=== PATIENT | female | born 2000 | race Caucasian/White ===

== ENCOUNTER 2022-02-07 17:33 | Inpatient (IN) | payer MEDICAID ==
[~2022-02-07] VITALS: Ht 162 cm; Wt 98.3 kg
[2022-02-07] MEDS ORDERED: LACTATED RINGERS 1,000 ML IV ONE (18:15)
[2022-02-07 18:36] LABS: BASOPHILS # (AUTO) 0.1 10^3/uL (0.0-0.1); BASOPHILS % (AUTO) 1 % (0-10); EOSINOPHILS % (AUTO) 0 % (0-10); HEMATOCRIT 45 % (35-52); HEMOGLOBIN 14.9 g/dL (11.5-16.0); LYMPHOCYTES # (AUTO) 1.9 10^3/uL (1.0-4.0); LYMPHOCYTES % (AUTO) 12 % (12-44); MEAN CORPUSCULAR HEMOGLOBIN 30 pg (25-34); MEAN CORPUSCULAR HGB CONC 33 g/dL (32-36); MEAN CORPUSCULAR VOLUME 91 fL (80-99); MEAN PLATELET VOLUME 9.2 fL (9.0-12.2); MONOCYTES # (AUTO) 0.9 10^3/uL (0.0-1.0); MONOCYTES % (AUTO) 6 % (0-12); NEUTROPHILS # (AUTO) 13.5 10^3/uL (1.8-7.8); NEUTROPHILS % (AUTO) 82 % (42-75); PLATELET COUNT 515 10^3/uL (130-400); WHITE BLOOD COUNT 16.5 10^3/uL (4.3-11.0)
[2022-02-07] MEDS ORDERED: ONDANSETRON 4 MG/2 ML (SDV) Z0FRAN IVP ONE (18:45)
[2022-02-07 18:56] LABS: ALBUMIN 4.8 GM/DL (3.2-4.5); CHLORIDE 103 MMOL/L (98-107)
[2022-02-07 18:57] LABS: POTASSIUM 3.4 MMOL/L (3.6-5.0); SODIUM 140 MMOL/L (135-145)
[2022-02-07 18:58] LABS: AMYLASE 58 U/L (25-125); CALCIUM 10.1 MG/DL (8.5-10.1)
[2022-02-07 18:59] LABS: GLUCOSE 123 MG/DL (70-105); TOTAL PROTEIN 8.8 GM/DL (6.4-8.2)
[2022-02-07 19:00] LABS: CARBON DIOXIDE 23 MMOL/L (21-32)
[2022-02-07 19:01] LABS: BILIRUBIN,TOTAL 0.7 MG/DL (0.1-1.0)
[2022-02-07 19:02] LABS: ALKALINE PHOSPHATASE 69 U/L (40-136); CREATININE SERUM 0.95 MG/DL (0.60-1.30); GFR ESTIMATED 89
[2022-02-07 19:03] LABS: BAND NEUTROPHILS 1 %; BUN/CREATININE RATIO 12; LYMPHOCYTES % (MANUAL) 17 %; MONOCYTES % (MANUAL) 9 %; NEUTROPHILS % (MANUAL) 73 %; RBC MORPH NORMAL
[2022-02-07 19:05] LABS: BILIRUBIN,URINE NEGATIVE (NEGATIVE); CLARITY,URINE CLEAR; COLOR,URINE ORANGE; GLUCOSE, URINE (UA) NEGATIVE (NEGATIVE); KETONES,URINE NEGATIVE (NEGATIVE); LEUKOCYTE ESTERASE ,URINE TRACE (NEGATIVE); NITRITE,URINE NEGATIVE (NEGATIVE); PH,URINE 5.5 (5-9); PROTEIN,URINE TRACE (NEGATIVE)
[2022-02-07 19:05] LABS: ALANINE AMINOTRANSFERASE 15 U/L (0-55)
[2022-02-07 19:06] LABS: MAGNESIUM 2.1 MG/DL (1.6-2.4)
[2022-02-07 19:07] LABS: LIPASE 13 U/L (8-78)
[2022-02-07 19:15] LABS: BACTERIA,URINE FEW /HPF; WBC,URINE 0-2 /HPF
[2022-02-07] MEDS ORDERED: HOLD METFORMIN - RECEIVED CONTRAST 20 ML VIAL IV SCH (19:15)
[2022-02-07] MEDS ORDERED: IOHEXOL 350 MG/ML 100 ML (OMNIPAQUE 350) VIAL IV ONE (19:15)
[2022-02-07] MEDS ORDERED: NS 100 ML (IVPB) BAG IV ONE (19:15)
[2022-02-07 19:20] LABS: AMPHETAMINE SCREEN, URINE NEGATIVE (NEGATIVE); BARBITURATE SCREEN URINE NEGATIVE (NEGATIVE); BENZODIAZEPINES SCREEN URINE NEGATIVE (NEGATIVE); CANNABINOID SCREEN, URINE POSITIVE (NEGATIVE); COCAINE SCREEN URINE NEGATIVE (NEGATIVE); METHADONE STAT NEGATIVE (NEGATIVE); OPIATE SCREEN URINE NEGATIVE (NEGATIVE); OXYCODONE STAT NEGATIVE (NEGATIVE); PROPOXYPHENE STAT NEGATIVE (NEGATIVE); TRICYCLIC ANTIDEPRESSANTS SCRE NEGATIVE (NEGATIVE)
[2022-02-07] MEDS ORDERED: PROMETHAZINE INJ 25 MG/ML (PHENERGAN) AMP IVP ONE (19:30)
--- NOTE | 2022-02-07 19:31 | ED GI ---
General Chief Complaint: Abdominal/GI Problems Stated Complaint: PAINS IN R SIDE, NAUSEATED, SOB, CHILLS Nursing Triage Note: RIGHT SIDED ABD PAIN AND NAUSEA STARTING AT 0800 Source of Information: Patient History of Present Illness Date Seen by Provider: Feb 07, 2022 Time Seen by Provider: 18:07 Initial Comments PT ARRIVES VIA POV FROM HOME STATES SHE WOKE UP AROUND 0800 THIS MORNING WITH RLQ ABDOMINAL PAIN WITH NAUSEA NO VOMITING HAD NORMAL BM YESTERDAY HAS HAD DECREASED URINE OUTPUT TODAY, BUT NO PAIN/BURNING ON URINATION HAS HAD SUBJECTIVE FEVER/SWEATS/CHILLS TODAY--DOES NOT HAVE A THERMOMETER PAIN IS WORSE WITH WALKING, COUGHING, MOVING, DEEP BREATHING HAS NOT TAKEN ANYTHING FOR PAIN, AND NOTHING IMPROVES PAIN NO RADIATION OF PAIN LAST INTAKE WAS SOMETIME THIS AFTERNOON--ATE SOME CEREAL. NOTHING ELSE TO EAT TODAY. LMP 1 WEEK AGO, HAS NEXPLANON IN PLACE. NO PRIOR ABDOMINAL SURGERIES OR GI PROBLEMS NO CHRONIC MEDICAL PROBLEMS PT IS NOT COVID VACCINATED PCP IN [place], [place] Allergies and Home Medications Allergies Coded Allergies: No Known Drug Allergies (Unverified , 02/07/22) Patient Home Medication List Home Medication List Reviewed: Yes Review of Systems Review of Systems Constitutional: see HPI, chills, diaphoresis, fever EENTM: No Symptoms Reported Respiratory: No Symptoms Reported Cardiovascular: No Symptoms Reported Gastrointestinal: See HPI; Denies Diarrhea; Nausea; Denies Vomiting Genitourinary: See HPI Musculoskeletal: no symptoms reported Skin: no symptoms reported, change in hair/nails Psychiatric/Neurological: No Symptoms Reported Endocrine: No Symptoms Reported Hematologic/Lymphatic: No Symptoms Reported Past Bcinqzg-Hjmofi-Omatxx Hx Patient Social History Tobacco Use?: No Smoking Status: Never a Smoker Substance use?: Yes Substance type: Marijuana Substance frequency: Daily Alcohol Use?: No Past Medical History Surgeries: No Respiratory: No Cardiac: No Neurological: No : No Reproductive Disorders: No Genitourinary: No Gastrointestinal: No Musculoskeletal: No Endocrine: No HEENT: No Cancer: No Psychosocial: No Integumentary: No Blood Disorders: No Physical Exam Vital Signs Vital Signs - First Documented 02/07/22 17:40 Temp 37.0 Pulse 113 Resp 16 B/P (MAP) 155/92 (113) Pulse Ox 98 O2 Delivery Room Air Capillary Refill : Less Than 3 Seconds Height/Weight/BMI Height: '" Weight: lbs. oz. kg; 36.00 BMI Method: General Appearance: WD/WN, other (LOOKS UNCOMFORTABLE) HEENT: PERRL/EOMI Respiratory: normal breath sounds, no respiratory distress, no accessory muscle use Cardiovascular: regular rate, rhythm, no murmur Gastrointestinal: soft, no organomegaly, no pulsatile mass, abnormal bowel sounds (DECREASED); No distended, No guarding; rebound, tenderness (RIGHT MID ); No hernia, No mass; other (+ HEEL TAP, + STRAIGHT LEG RAISING. NEGATIVE ROVSING'S. + PSOAS AND + OBTURATOR. ) Extremities: normal inspection, normal capillary refill Back: no CVA tenderness Neurologic/Psychiatric: equipment tester II-XII nml as tested, no motor/sensory deficits, alert, oriented x 3 Skin: normal color, warm/dry; No rash Progress/Results/Core Measures Results/Orders Lab Results Laboratory Tests Test 02/07/22 18:15 02/07/22 18:45 02/07/22 18:55 Range/Units White Blood Count 16.5 H 4.3-11.0 10^3/uL Red Blood Count 4.92 3.80-5.11 10^6/uL Hemoglobin 14.9 11.5-16.0 g/dL Hematocrit 45 35-52 % Mean Corpuscular Volume 91 80-99 fL Mean Corpuscular Hemoglobin 30 25-34 pg Mean Corpuscular Hemoglobin Concent 33 32-36 g/dL Red Cell Distribution Width 12.9 10.0-14.5 % Platelet Count 515 H 130-400 10^3/uL Mean Platelet Volume 9.2 9.0-12.2 fL Immature Granulocyte % (Auto) 0 % Neutrophils (%) (Auto) 82 H 42-75 % Lymphocytes (%) (Auto) 12 12-44 % Monocytes (%) (Auto) 6 0-12 % Eosinophils (%) (Auto) 0 0-10 % Basophils (%) (Auto) 1 0-10 % Neutrophils # (Auto) 13.5 H 1.8-7.8 10^3/uL Lymphocytes # (Auto) 1.9 1.0-4.0 10^3/uL Monocytes # (Auto) 0.9 0.0-1.0 10^3/uL Eosinophils # (Auto) 0.0 0.0-0.3 10^3/uL Basophils # (Auto) 0.1 0.0-0.1 10^3/uL Immature Granulocyte # (Auto) 0.1 0.0-0.1 10^3/uL Neutrophils % (Manual) 73 % Lymphocytes % (Manual) 17 % Monocytes % (Manual) 9 % Band Neutrophils 1 % Blood Morphology Comment NORMAL Sodium Level 140 135-145 MMOL/L Potassium Level 3.4 L 3.6-5.0 MMOL/L Chloride Level 103 98-107 MMOL/L Carbon Dioxide Level 23 21-32 MMOL/L Anion Gap 14 5-14 MMOL/L Blood Urea Nitrogen 11 7-18 MG/DL Creatinine 0.95 0.60-1.30 MG/DL Estimat Glomerular Filtration Rate 89 BUN/Creatinine Ratio 12 Glucose Level 123 H 70-105 MG/DL Calcium Level 10.1 8.5-10.1 MG/DL Corrected Calcium 8.5-10.1 MG/DL Magnesium Level 2.1 1.6-2.4 MG/DL Total Bilirubin 0.7 0.1-1.0 MG/DL Aspartate Amino Transf (AST/SGOT) 16 5-34 U/L Alanine Aminotransferase (ALT/SGPT) 15 0-55 U/L Alkaline Phosphatase 69 40-136 U/L Total Protein 8.8 H 6.4-8.2 GM/DL Albumin 4.8 H 3.2-4.5 GM/DL Amylase Level 58 25-125 U/L Lipase 13 8-78 U/L Serum Test, Qualitative NEGATIVE NEGATIVE SARS-CoV-2 RNA (RT-PCR) Not Detected Not Detecte Urine Color ORANGE Urine Clarity CLEAR Urine pH 5.5 5-9 Urine Specific [place] >=1.030 1.016-1.022 Urine Protein TRACE H NEGATIVE Urine Glucose (UA) NEGATIVE NEGATIVE Urine Ketones NEGATIVE NEGATIVE Urine Nitrite NEGATIVE NEGATIVE Urine Bilirubin NEGATIVE NEGATIVE Urine Urobilinogen 0.2 < = 1.0 MG/DL Urine Leukocyte Esterase TRACE H NEGATIVE Urine RBC (Auto) NEGATIVE NEGATIVE Urine RBC NONE /HPF Urine WBC 0-2 /HPF Urine Squamous Epithelial Cells 5-10 /HPF Urine Crystals NONE /LPF Urine Bacteria FEW H /HPF Urine Casts NONE /LPF Urine Mucus SMALL H /LPF Urine Culture Indicated YES Urine Opiates Screen NEGATIVE NEGATIVE Urine Oxycodone Screen NEGATIVE NEGATIVE Urine Methadone Screen NEGATIVE NEGATIVE Urine Propoxyphene Screen NEGATIVE NEGATIVE Urine Barbiturates Screen NEGATIVE NEGATIVE Ur Tricyclic Antidepressants Screen NEGATIVE NEGATIVE Urine Phencyclidine Screen NEGATIVE NEGATIVE Urine Amphetamines Screen NEGATIVE NEGATIVE Urine Methamphetamines Screen NEGATIVE NEGATIVE Urine Benzodiazepines Screen NEGATIVE NEGATIVE Urine Cocaine Screen NEGATIVE NEGATIVE Urine Cannabinoids Screen POSITIVE H NEGATIVE My Orders Orders - LIZETH MEJIA DO Ed Iv/Invasive Line Start (02/07/22 18:01) Amylase (02/07/22 18:01) Cbc With Automated Diff (02/07/22 18:01) Comprehensive Metabolic Panel (02/07/22 18:01) Drug Screen Stat (Urine) (02/07/22 18:01) Lipase (02/07/22 18:01) Magnesium (02/07/22 18:01) Ua Culture If Indicated (02/07/22 18:01) Ed Iv/Invasive Line Start (02/07/22 18:01) Lactated Ringers (Lr 1000 Ml Iv Solution (02/07/22 18:15) Urine Bedside (02/07/22 18:01) Covid 19 Inhouse Test (02/07/22 18:01) Isolation Central Supply Req (02/07/22 18:01) Ondansetron Injection (Zofran Injectio (02/07/22 18:45) Manual Differential (02/07/22 18:15) Hcg,Qualitative Serum (02/07/22 18:37) Ct Abd/Pelv W (Appendicitis) (02/07/22 19:03) Iohexol Injection (Omnipaque 350 Mg/Ml 1 (02/07/22 19:15) Received Contrast (Hold Metformin- Contr (02/07/22 19:15) Ns (Ivpb) (Sodium Chloride 0.9% Ivpb Bag (02/07/22 19:15) Urine Culture (02/07/22 18:55) Promethazine Injection (Phenergan Injec (02/07/22 19:30) Fentanyl Inj (Sublimaze Injection) (02/07/22 19:45) Medications Given in ED Current Medications Medications Dose Ordered Sig/[place] Route Start Time Stop Time Status Last Admin Dose Admin Fentanyl Citrate 50 mcg ONCE ONCE IVP 02/07/22 19:45 02/07/22 19:46 DC 02/07/22 19:41 50 MCG Iohexol 100 ml ONCE ONCE IV 02/07/22 19:15 02/07/22 19:16 DC 02/07/22 19:30 100 ML Lactated Ringer's 1,000 ml @ 0 mls/hr Q0M ONCE IV 02/07/22 18:15 02/07/22 18:16 DC 02/07/22 18:36 0 MLS/HR Ondansetron HCl 8 mg ONCE ONCE IVP 02/07/22 18:45 02/07/22 18:46 DC 02/07/22 18:36 8 MG Promethazine HCl 25 mg ONCE ONCE IVP 02/07/22 19:30 02/07/22 19:31 DC 02/07/22 19:34 25 MG Vital Signs/I&O 02/07/22 17:40 Temp 37.0 Pulse 113 Resp 16 B/P (MAP) 155/92 (113) Pulse Ox 98 O2 Delivery Room Air Blood Pressure Mean: 113 Progress Progress Note : Progress Note GIVEN IV FLUIDS, ZOFRAN, PHENERGAN, REGLAN AND FENTANYL GIVEN CIPRO AND FLAGYL PER DR. SWAN'S ORDERS NO DETERIORATION IN PT'S CONDITION DURING ER STAY Diagnostic Imaging Comments CT ABDOMEN/PELVIS--PER RADIOLOGIST REPORT AT 1944 FINDINGS: Limited views of the lower thorax are unremarkable. The liver is normal without focal lesion. There is no biliary ductal dilation. Gallbladder is normal. Pancreas is normal. Spleen is normal. Adrenal glands are normal. The kidneys are normal. There is no hydronephrosis. Urinary bladder is normal. Appendix is significantly dilated and fluid-filled with surrounding stranding in keeping with acute appendicitis. There is a large fecalith at the appendiceal orifice. Small bowel is normal. No free fluid or air. No abdominal or pelvic lymphadenopathy. Aorta is normal in caliber without aneurysm. There is no suspicious osseus lesion. IMPRESSION: Acute appendicitis without abscess or perforation. Reviewed: Reviewed by Me Departure Communication (Admissions) 1944--SPOKE WITH DR. SWAN, SURGEON, ACCEPTS PT FOR ADMIT. ORDERS NOTED FOR AN TIBIOTICS. 1949--CHEF KITCHEN MANAGER CONTACTED. Impression Primary Impression: Appendicitis Additional Impression: Urinary tract infection Disposition: ADMITTED INPATIENT Condition: Stable Admissions Decision to Admit Reason: Admit from ER (General) Decision to Admit/Date: Feb 07, 2022 Time/Decision to Admit Time: 19:45 Departure-Patient Inst. Referrals: NO,LOCAL PHYSICIAN (PCP/Family) Primary Care Physician LIZETH MEJIA DO Feb 07, 2022 19:31
--- NOTE | 2022-02-07 19:42 | Diagnostic Imaging Report ---
EXAMINATION: CT abdomen and pelvis with intravenous contrast. TECHNIQUE: Multiple contiguous axial images were obtained through the abdomen and pelvis after the uneventful administration of intravenous contrast. All CT scans use one or more of the following dose optimizing techniques: automated exposure control, MA and/or KvP adjustment based on patient size and exam type or iterative reconstruction. HISTORY: Right lower quadrant pain. COMPARISON: None available. FINDINGS: Limited views of the lower thorax are unremarkable. The liver is normal without focal lesion. There is no biliary ductal dilation. Gallbladder is normal. Pancreas is normal. Spleen is normal. Adrenal glands are normal. The kidneys are normal. There is no hydronephrosis. Urinary bladder is normal. Appendix is significantly dilated and fluid-filled with surrounding stranding in keeping with acute appendicitis. There is a large fecalith at the appendiceal orifice. Small bowel is normal. No free fluid or air. No abdominal or pelvic lymphadenopathy. Aorta is normal in caliber without aneurysm. There is no suspicious osseus lesion. IMPRESSION: Acute appendicitis without abscess or perforation. Dictated by: Dictated on workstation # [id number]
[2022-02-07] MEDS ORDERED: fentaNYL INJ 100 MCG/2 ML AMP IVP ONE ×2 (19:45→20:15)
[2022-02-07] MEDS ORDERED: metroNIDAZOLE 500MG/100ML IVPB 100 ML IV ONE (20:00)
[2022-02-07] MEDS ORDERED: CIPROFLOXACIN IV 400MG/200ML 200 ML IV ONE (20:00)
--- NOTE | 2022-02-07 20:11 | Progress Note-Pre Operative ---
Pre-Operative Progress Note H&P Reviewed The H&P was reviewed, patient examined and no changes noted. Date Seen by Provider: Feb 07, 2022 Time Seen by Provider: 20:30 Date H&P Reviewed: Feb 07, 2022 Time H&P Reviewed: :30 Pre-Operative Diagnosis: acute appendicitis HARRY SWAN MD Feb 07, 2022 20:11
[2022-02-07] MEDS ORDERED: METOCLOPRAMIDE INJ 10 MG/2 ML (REGLAN) IVP ONE (20:15)
[2022-02-07 20:50] VITALS: BP 122/77
--- NOTE | 2022-02-07 21:25 | HISTORY AND PHYSICAL ---
DATE OF SERVICE: HISTORY OF PRESENT ILLNESS: The patient is a 21-year-old female who presented to [facility] Emergency Department with 1-day history of pain in the right lower abdominal quadrant with associated nausea; however, no vomiting. She states that she felt fine the night before and had a normal bowel movement. This morning, she felt the pain and had decreased urine output as well as some mild chills. The pain was localized and sharp in consistency. She also stated that the pain was worse upon ambulation. She does not report having any similar type of symptoms in the past. Her last menstrual period was approximately 1 week ago and has a Nexplanon in place. A CT scan was performed, which did show inflammation of the appendix with an appendicolith consistent with noncomplicated appendicitis. PAST MEDICAL HISTORY: None. PAST SURGICAL HISTORY: None. ALLERGIES: NO KNOWN DRUG ALLERGIES. MEDICATIONS: Nexplanon implant. SOCIAL HISTORY: Positive for marijuana smoke, negative alcohol. FAMILY HISTORY: Noncontributory. PHYSICAL EXAMINATION: VITAL SIGNS: Temperature 37.0, blood pressure 155/92, pulse 90 respiration 16, pulse ox 98% on room air. REVIEW OF SYSTEMS: A well-nourished female, currently in no acute distress. She is not experiencing any shortness of breath or difficulty breathing. No chest pain, palpitations, diaphoresis. Intermittent episodes of nausea, no vomiting, anorexia. Last bowel movement was yesterday, which was a normal consistency. No diarrhea, no red blood per rectum, no dark tarry stools. Mild chills at home. No recent inadvertent weight loss. All other review of systems negative. PHYSICAL EXAMINATION: Will be assessed upon seeing the patient in the a.m. The information was accrued through the emergency room physician as well as the patient's electronic medical records. LABORATORY DATA: WBC 16.5, hemoglobin 14.9, hematocrit 45, platelets 515, BUN 11, creatinine 0.95. Urinalysis, trace leukocyte esterase, few bacteria. ASSESSMENT AND PLAN: A 21-year-old female with noncomplicated acute appendicitis. The natural history of this disease process was explained to the patient as well as the risks and benefits of surgery and she is in full understanding of this and would like to proceed with a laparoscopic appendectomy, which we will schedule. We will proceed with adequate IV hydration due to her dehydrated status as well as IV antibiotics and adequate pain control. Job ID: [id number] DocumentID: [id number] Dictated Date: 02/07/2022 20:05:24 Plastic Production Machine Setter Date: 02/07/2022 21:24:24 Dictated By: HRARY SWAN MD [facility] PARTNER[facility]st[facility]
[2022-02-07] MEDS ORDERED: diphenhydrAMINE 50 MG/ML INJ (BENADRYL) IVP PRN (21:30)
[2022-02-07] MEDS ORDERED: PROMETHAZINE INJ 25 MG/ML (PHENERGAN) AMP IVP PRN (21:30)
[2022-02-07] MEDS ORDERED: METOCLOPRAMIDE INJ 10 MG/2 ML (REGLAN) IVP PRN (21:30)
[2022-02-07] MEDS: FAMOTIDINE 20MG/2ML IV (PEPCID) IVP SCH (22:16)
[2022-02-07] MEDS: D5 1/2 NS W/KCL 20 MEQ/L 1,000 ML IV SCH (22:22)
[2022-02-07] MEDS: HYDROcodone/APAP 7.5 MG/325 MG (LORTAB, LORCET PLUS) TABLET PO PRN (22:32)
[2022-02-08] VITALS (13 sets, daily range): BP systolic 89–139; BP diastolic 56–91
[2022-02-08] MEDS: D5 1/2 NS W/KCL 20 MEQ/L 1,000 ML IV SCH ×2 (05:03→11:01)
[2022-02-08] MEDS: fentaNYL INJ 100 MCG/2 ML AMP IVP PRN ×6 (05:16→14:59)
[2022-02-08] MEDS ORDERED: ONDANSETRON 4 MG/2 ML (SDV) Z0FRAN ONE (08:38)
[2022-02-08] MEDS ORDERED: LIDOCAINE PF 2% 5 ML (XYLOCAINE) VIAL ONE (08:38)
[2022-02-08] MEDS ORDERED: SEVOFLURANE (ULTANE) 15 ML INHAL SOLN ONE ×2 (08:38→12:26)
[2022-02-08] MEDS ORDERED: proPOfol 200 MG/20 ML (DIPRIVAN) VIAL IV ONE (08:38)
[2022-02-08] MEDS ORDERED: MIDAZOLAM 2 MG/2 ML (VERSED) VIAL ONE (08:39)
[2022-02-08] MEDS ORDERED: fentaNYL INJ 100 MCG/2 ML AMP ONE (08:39)
[2022-02-08] MEDS ORDERED: ROCURONIUM 50 MG/5 ML (ZEMURON) VIAL IV ONE (08:39)
[2022-02-08] MEDS: ONDANSETRON 4 MG/2 ML (SDV) Z0FRAN IVP PRN ×2 (08:46→13:53)
[2022-02-08] MEDS ORDERED: CIPROFLOXACIN IV 400MG/200ML 200 ML IV SCH (09:00)
[2022-02-08] MEDS ORDERED: metroNIDAZOLE 500MG/100ML IVPB 100 ML IV SCH (09:00)
[2022-02-08] MEDS: FAMOTIDINE 20MG/2ML IV (PEPCID) IVP SCH (09:14)
[2022-02-08 09:27] LABS: BASOPHILS # (AUTO) 0.1 10^3/uL (0.0-0.1); BASOPHILS % (AUTO) 0 % (0-10); EOSINOPHILS % (AUTO) 0 % (0-10); HEMATOCRIT 38 % (35-52); HEMOGLOBIN 12.5 g/dL (11.5-16.0); LYMPHOCYTES # (AUTO) 3.4 10^3/uL (1.0-4.0); LYMPHOCYTES % (AUTO) 25 % (12-44); MEAN CORPUSCULAR HEMOGLOBIN 31 pg (25-34); MEAN CORPUSCULAR HGB CONC 33 g/dL (32-36); MEAN CORPUSCULAR VOLUME 93 fL (80-99); MEAN PLATELET VOLUME 9.1 fL (9.0-12.2); MONOCYTES # (AUTO) 1.1 10^3/uL (0.0-1.0); MONOCYTES % (AUTO) 8 % (0-12); NEUTROPHILS # (AUTO) 8.8 10^3/uL (1.8-7.8); NEUTROPHILS % (AUTO) 66 % (42-75); PLATELET COUNT 407 10^3/uL (130-400); WHITE BLOOD COUNT 13.4 10^3/uL (4.3-11.0)
[2022-02-08 09:45] LABS: CALCIUM 9.2 MG/DL (8.5-10.1); CREATININE SERUM 0.85 MG/DL (0.60-1.30); POTASSIUM 3.4 MMOL/L (3.6-5.0)
[2022-02-08] MEDS ORDERED: LIDOCAINE/EPI 2% 1:200,00 (XYLOCAINE) 20 ML VIAL ONE (10:33)
[2022-02-08] MEDS ORDERED: LACTATED RINGERS 1,000 ML IV PRN (11:30)
--- NOTE | 2022-02-08 12:18 | Progress Note-Post Operative ---
Post-Operative Progess Note Surgeon (s)/Investigative Analyst (s) Surgeon HARRY SWAN MD Investigative Analyst: none Pre-Operative Diagnosis acute appendicitis Post-Operative Diagnosis same Procedure & Operative Findings Date of Procedure 02/08/22 Procedure Performed/Findings laparoscopic appendectomy Anesthesia Type get Estimated Blood Loss Estimated blood loss (mL): minimal Specimens/Packing Specimens Removed appendix HARRY SWAN MD Feb 08, 2022 12:18
[2022-02-08] MEDS ORDERED: HYDR-3817 PO (12:20)
--- NOTE | 2022-02-08 12:21 | Discharge Inst-Surgical ---
D/C Lap Instructions-SOSA New, Converted, or Re-Newed RX: RX on Chart Follow Up Appt in 2 weeks Activity as tolerated No driving for 24 hours No driving while on pain medications Incentive Spirometry use every 2 hours while awake Regular Diet Symptoms to Report: Fever over 101 degree F, Nausea/Vomiting Infection Signs and Symptoms to report: Increased redness, Foul odor of wound, Increased drainage Bathing instructions: May shower Operative Area Clean/Dry; Keep incision clean/dry If any problems/questions: Contact your physician or go to Emergency Room HARRY SWAN MD Feb 08, 2022 12:21
--- NOTE | 2022-02-08 12:32 | Anesthesia-General Post-Op ---
General Patient Condition Mental Status/LOC: Same as Preop Cardiovascular: Satisfactory Nausea/Vomiting: Absent Respiratory: Satisfactory Pain: Controlled Complications: Absent Post Op Complications Complications None Follow Up Care/Instructions Patient Instructions None needed. Anesthesia/Patient Condition Patient Condition Patient is doing well, no complaints, stable vital signs, no apparent adverse anesthesia problems. No complications reported per nursing. ARETHA MANSFIELD CRNA Feb 08, 2022 12:32
[2022-02-08] MEDS ORDERED: morphine INJ 10 MG/ML 1ML (SYR OR VIAL) IVP ONE (12:45)
[2022-02-08] MEDS ORDERED: ONDANSETRON 4 MG/2 ML (SDV) Z0FRAN IVP PRN (12:45)
[2022-02-08] MEDS ORDERED: HYDROmorphone 2 MG/ML VIAL (DILAUDID) IV ONE (12:45)
[2022-02-08] MEDS ORDERED: MEPERIDINE (DEMEROL) INJ 50 MG/ML IVP ONE (12:45)
[2022-02-08] MEDS ORDERED: PROMETHAZINE INJ 25 MG/ML (PHENERGAN) AMP IVP ONE (12:45)
[2022-02-08] MEDS: HYDROcodone/APAP 7.5 MG/325 MG (LORTAB, LORCET PLUS) TABLET PO PRN (13:53)
--- NOTE | 2022-02-08 14:27 | OPERATIVE REPORT ---
DATE OF SERVICE: 02/08/2022 PREOPERATIVE DIAGNOSIS: Acute appendicitis. POSTOPERATIVE DIAGNOSIS: Acute appendicitis. PROCEDURE: Laparoscopic appendectomy. SURGEON: Hola Quintanilla MD. ANESTHESIA: General endotracheal. ESTIMATED BLOOD LOSS: Minimal. FINDINGS: Inflamed appendix, no perforation. DISPOSITION: The patient tolerated the procedure well. INDICATIONS: The patient is a 21-year-old female who presented to the Emergency Department with a 1-day history of pain in the right lower abdominal quadrant with associated nausea; however, no vomiting. She states that she felt fine the night before and had had a normal bowel movement. The following morning, she felt the pain as well as decreased urine output and some mild chills. The pain was localized and sharp in consistency in the right lower abdominal quadrant and was worse upon ambulation. She reports that her last menstrual period was approximately one week ago and has a Nexplanon in place. CT scan was performed, which did show inflammation of the appendix with no perforation as well as an appendicolith consistent with a noncomplicated appendicitis. DESCRIPTION OF PROCEDURE: The patient was brought to the operating room, laid supine on the table. After adequate IV pain and sedative medications and general endotracheal intubation, the abdomen was prepped and draped in standard surgical fashion. A 0.5% Marcaine with epinephrine was used to anesthetize the overlying skin in the left upper abdominal quadrant and transverse skin incision made using a 15 blade. An 0 silk suture was applied to the medial aspect of incision for retraction and the Veress needle inserted with a low opening pressure of 0 mmHg. The abdomen was then insufflated to 15 mmHg pressure. The Veress needle removed, and a 5 mm XL trocar placed followed by a 5 mm 45-degree angle laparoscope visualizing the peritoneal cavity. A 4-quadrant abdominal exploration was performed. There did appear to be a small cyst on the right ovary. There was edematous and inflamed appendix, no perforation. The remainder of the colon and small bowel appeared normal. Under direct visualization, we then proceed to place a supraumbilical 10 mm port after the skin and peritoneal lining were anesthetized using 0.5% Marcaine with epinephrine and transverse skin incision made using 15 blade. In a similar manner, a suprapubic 5mm port was placed. The appendix was then dissected out using blunt dissection as well as electrocautery on hook instrument. The appendix was then retracted towards the anterior abdominal wall and a window created between the base of the appendix and the mesoappendix using a [place] dissector. The base of the appendix was then stapled at the cecal base using a DALLIN 45 mm stapler with a 2.5 mm thickness load. The mesoappendix was then stapled and transected with the same stapler with a 2.0 mm thickness reload with visualization of good hemostasis. The area was then copiously irrigated and suctioned out. The appendix was removed through the 10 mm port site using an EndoCatch bag. The 10 mm port site fascia and peritoneum were then closed under direct visualization using a Walter-Spike device and an 0 Vicryl suture. The abdomen was desufflated and remaining ports removed. All skin incisions were closed using 4-0 Monocryl running subcuticular sutures. Wounds were then cleaned and covered with Dermabond. The patient tolerated the procedure well. We will start IV and oral pain medication as well as a clear liquid diet. Once she is tolerating clears, has good pain control with oral pain medication and is ambulating well, we will discharge her home where she will be instructed to do no heavy lifting or exertion for the next two weeks. Job ID: [id number] DocumentID: [id number] Dictated Date: 02/08/2022 12:26:39 Superintendent Horticulture Date: 02/08/2022 14:26:50 Dictated By: MD CAESAR GARCIA
== END 2022-02-08 16:24 | disposition home or self-care (01) | DRG 342 ==
LOC: ER 17:40 → 4TH 19:45
PROVIDERS: ADMIT Surgery; ATTEND Surgery
PROC: 0DTJ4ZZ Resection of Appendix, Percutaneous Endoscopic Approach (ICD-10-PCS; principal; 2022-02-07)
DX: K35.80 Unspecified acute appendicitis (principal); N39.0 Urinary tract infection, site not specified; E86.0 Dehydration; Z28.310 Unvaccinated for COVID-19; Z20.822 Contact with and (suspected) exposure to COVID-19; F12.90 Cannabis use, unspecified, uncomplicated
CPT/HCPCS: 36415; 74177; 80048; 80053; 80306; 81000; 82150; 83690; 83735; 84703; 85007; 85025; 85027; 87081; 87088; 87636